=== PATIENT | male | born 1945 | race Two or more races ===

== ENCOUNTER 2017-10-09 07:31 | Day surgery (SDC) | payer MEDICARE ==
[~2017-10-09] VITALS: Ht 185.4 cm; Wt 101.0 kg
[~2017-10-09 07:31] MED LIST: ASPI325 PO; ATOR40TA PO; CIPR500 PO; CLOP75 PO; FINA5 PO; FISH1000 PO; LEVSOD137 PO; METO50ER PO; OXYACE5T PO; Pyridium100 MG PO; Saw Palmetto450 MG PO; [UNRECOGNIZED DRUG - REMARK]
[2017-10-09] MEDS ORDERED: Aspirin EC81 MG PO (07:52)
[2017-10-09] MEDS ORDERED: DRON400T PO (07:54)
[2017-10-09] MEDS ORDERED: ELIQUIS5 MG PO (07:55)
[2017-10-09] MEDS ORDERED: TORSE20 PO (07:56)
[2017-10-09] MEDS ORDERED: SPIR25 PO (07:57)
[2017-10-09] MEDS ORDERED: Amiodarone HCl400 MG PO (09:12)
[2017-10-09] MEDS ORDERED: Omeprazole20 M1 PO (09:13)
[2017-10-10] MEDS ORDERED: SPIR25 (13:08)
[2017-10-10] MEDS ORDERED: LOSA50 (13:09)
[2017-10-10] MEDS ORDERED: BETA.05TCA (13:09)
== END 2017-10-09 23:27 | disposition home or self-care (01) ==
LOC: MHTC 07:31
PROC: 5A2204Z Restoration of Cardiac Rhythm, Single (ICD-10-PCS; principal; 2017-10-09)
DX: I48.0 Paroxysmal atrial fibrillation (principal); I10 Essential (primary) hypertension; I25.10 Atherosclerotic heart disease of native coronary artery without angina pectoris; E78.5 Hyperlipidemia, unspecified; E03.9 Hypothyroidism, unspecified
CPT/HCPCS: 92960; 93005; 93010; 99152; J7030

== ENCOUNTER 2017-10-13 07:21 | Day surgery (SDC) | payer MEDICARE ==
[~2017-10-13] VITALS: Ht 180.3 cm; Wt 106.0 kg
[~2017-10-13 07:21] MED LIST changes: +Amiodarone HCl400 MG PO; +Aspirin EC81 MG PO; +BETA.05TCA; +DRON400T PO; +ELIQUIS5 MG PO; +LOSA50; +Omeprazole20 M1 PO; +SPIR25; +SPIR25 PO; +TORSE20 PO
[2017-10-13] MEDS ORDERED: Amiodarone HCl200 MG (07:56)
[2017-10-13] MEDS ORDERED: ABAT250V (07:57)
[2017-10-13 13:56] LABS: PO2 Arterial 350 mmHg (80-100)
[2017-10-13 13:59] LABS: pH Blood Arterial 7.23 (7.35-7.45)
[2017-10-13 14:09] LABS: BASOPHILS ABSOLUTE AUTO 0.03 K/mm3 (0.00-0.23); BASOPHILS PERCENT AUTO 0 % (0-2); EOSINOPHILS ABSOLUTE AUTO 0.11 K/mm3 (0.00-0.68); EOSINOPHILS PERCENT AUTO 1 % (0-6); Hematocrit 37.9 % (37.0-53.0); Hemoglobin 12.4 g/dL (13.5-17.5); IMMATURE GRAN ABSOLUTE AUTO 0.13 K/mm3 (0.00-0.10); IMMATURE GRAN PERCENT AUTO 1 % (0-1); LYMPHOCYTES ABSOLUTE AUTO 1.87 K/mm3 (0.84-5.20); LYMPHOCYTES PERCENT AUTO 15 % (21-46); MONOCYTES ABSOLUTE AUTO 0.69 K/mm3 (0.16-1.47); MONOCYTES PERCENT AUTO 6 % (4-13); Mean Corpuscular HGB 30.5 pg (26.0-34.0); Mean Corpuscular HGB Conc 32.7 g/dL (31.5-36.5); Mean Corpuscular Volume 93 fL (80-100); Mean Platelet Volume 10.1 fL (9.1-12.4); NEUTROPHILS ABSOLUTE AUTO 9.52 K/mm3 (1.96-9.15); NEUTROPHILS PERCENT AUTO 77 % (41-73); Platelet Count 131 K/mm3 (150-400); RDW Coefficient Variation 13.3 % (11.7-14.2); RDW Standard Deviation 45.2 fL (35.1-46.3); Red Blood Cell Count 4.07 M/mm3 (4.30-5.90); White Blood Cell Count 12.35 K/mm3 (4.00-11.30)
[2017-10-13 14:19] LABS: International Normalized Ratio 1.3; Prothrombin Time Results 13.6 Sec (9.7-11.5)
== END 2017-10-13 16:00 | disposition short-term general hospital (02) ==
LOC: MHTC 07:21
PROVIDERS: Internal Medicine Clinical Cardiac Electrophysiology
PROC: 02583ZZ Destruction of Conduction Mechanism, Percutaneous Approach (ICD-10-PCS; principal; 2017-10-13)
PROC: 02K83ZZ Map Conduction Mechanism, Percutaneous Approach (ICD-10-PCS; principal; 2017-10-13)
PROC: 4A023FZ Measurement of Cardiac Rhythm, Percutaneous Approach (ICD-10-PCS; principal; 2017-10-13)
PROC: 4A0234Z Measurement of Cardiac Electrical Activity, Percutaneous Approach (ICD-10-PCS; principal; 2017-10-13)
DX: I48.2 Chronic atrial fibrillation (principal); I10 Essential (primary) hypertension; E03.9 Hypothyroidism, unspecified; E78.5 Hyperlipidemia, unspecified; Z79.899 Other long term (current) drug therapy; Z79.01 Long term (current) use of anticoagulants; Z95.1 Presence of aortocoronary bypass graft
CPT/HCPCS: 33010; 36430; 36556; 36620; 76930; 76937; 82435; 82803; 84132; 84295; 85025; 85347; 85610; 86850; 86900; 86901; 86923; 92960; 93005; 93010; 93462; 93613; 93656; 93662; C1730; C1731; C1732; C1751; C1759; C1769; C1893; C1894; J1644; J2370; J2405; J2710; J2720; J3010; J7030; J7040; J7060; J7120; P9016; P9059

== ENCOUNTER → 2019-11-29 | Outpatient (CLI) | payer MEDICARE ==
[~2019-11-29] MED LIST changes: +ABAT250V; +Amiodarone HCl200 MG
[2019-11-29 08:05] LABS: Source, Urine Clean Catch
[2019-11-29 10:54] LABS: Bacteria Rare /hpf; Red Blood Cells, Urine Not Seen /hpf (0-2); Squamous Epithelial Cells Rare /hpf (Few); White Blood Cells, Urine Not Seen /hpf (0-5)
[2019-11-29 10:55] LABS: Microalb/Creat Ratio UR, Rand 71.482 mg/g (0.000-30.000); Microalbumin, Random Urine 77.2 mg/L (0.000-20.000)
== END | disposition home or self-care (01) ==
LOC: MHTC 01-31 08:00 → EDSTATUS 02-09 08:00 → LAB 08:00
PROVIDERS: Family Medicine
DX: E78.5 Hyperlipidemia, unspecified (principal); E03.9 Hypothyroidism, unspecified; R31.21 Asymptomatic microscopic hematuria; I10 Essential (primary) hypertension; R07.2 Precordial pain
CPT/HCPCS: 81015; 82043; 82570

== ENCOUNTER 2021-12-27 18:11 | Emergency (ER) | payer OTHER ==
[~2021-12-27] VITALS: Ht 185.4 cm; Wt 102.1 kg
[2021-12-27] MEDS ORDERED: WARF3 PO (19:28)
[2021-12-27] MEDS ORDERED: METO100ER PO ×2 (19:28→20:59)
[2021-12-27 19:30] LABS: BASOPHILS ABSOLUTE AUTO 0.03 K/mm3 (0.00-0.23); BASOPHILS PERCENT AUTO 0 % (0-2); EOSINOPHILS ABSOLUTE AUTO 0.17 K/mm3 (0.00-0.68); EOSINOPHILS PERCENT AUTO 2 % (0-6); Hematocrit 45.5 % (37.0-53.0); Hemoglobin 15.1 g/dL (13.5-17.5); IMMATURE GRAN ABSOLUTE AUTO 0.04 K/mm3 (0.00-0.10); IMMATURE GRAN PERCENT AUTO 1 % (0-1); LYMPHOCYTES PERCENT AUTO 23 % (21-46); MONOCYTES ABSOLUTE AUTO 0.73 K/mm3 (0.16-1.47); MONOCYTES PERCENT AUTO 9 % (4-13); Mean Corpuscular HGB 29.5 pg (26.0-34.0); Mean Corpuscular HGB Conc 33.2 g/dL (31.5-36.5); Mean Corpuscular Volume 89 fL (80-100); NEUTROPHILS ABSOLUTE AUTO 5.26 K/mm3 (1.96-9.15); NEUTROPHILS PERCENT AUTO 65 % (41-73); NRBC ABSOLUTE 0.02 K/mm3 (0.00-0.02); NRBC Auto 0.2 /100 WBC (0.0-0.2); Platelet Count 201 K/mm3 (150-400); RDW Coefficient Variation 13.1 % (11.7-14.2); RDW Standard Deviation 42.5 fL (35.1-46.3); Red Blood Cell Count 5.12 M/mm3 (4.30-5.90); White Blood Cell Count 8.13 K/mm3 (4.00-11.30)
[2021-12-27 19:45] LABS: Alanine Aminotransfer (ALT/SGP 25 U/L (12-78); Albumin, Blood 3.4 g/dL (3.4-5.0); Albumin/Globulin Ratio 0.9 (0.8-1.8); Alk Phos 141 U/L (50-136); Anion Gap 8 mmol/L (6-16); Aspartate Aminotrans (AST/SGOT 18 U/L (12-37); Bilirubin, Total 0.4 mg/dL (0.1-1.0); Blood Urea Nitrogen 13 mg/dL (8-24); Bun/Creatinine Ratio 14.2 (12.0-20.0); CO2, Blood 26 mmol/L (21-32); Calcium, Blood 8.8 mg/dL (8.5-10.1); Chloride, Blood 107 mmol/L (98-108); Creatinine, Blood 0.92 mg/dL (0.60-1.20); Globulin, Blood 3.8 g/dL (2.2-4.0); Glomerular Filtration Rate >60 (60-); Glucose, Blood 162 mg/dL (70-99); Potassium, Blood 3.6 mmol/L (3.5-5.5); Sodium, Blood 141 mmol/L (136-145); Total Protein, Blood 7.2 g/dL (6.4-8.2)
== END 2021-12-27 21:11 | disposition home or self-care (01) ==
LOC: ER 18:11
PROVIDERS: Student in an Organized Health Care Education/Training Program
DX: I48.91 Unspecified atrial fibrillation (principal)
CPT/HCPCS: 80053; 84484; 85025; 93005; 93010; 96374; 99285-25; A9270

== ENCOUNTER → 2022-04-01 | Outpatient (CLI) | payer OTHER ==
[~2022-04-01] MED LIST changes: +METO100ER PO; +WARF3 PO
== END | disposition home or self-care (01) ==
LOC: PLD 12:17 → LAB SHORT 12:17
DX: L57.0 Actinic keratosis (principal); D48.5 Neoplasm of uncertain behavior of skin
CPT/HCPCS: 88305

== ENCOUNTER → 2022-09-30 | Outpatient (CLI) | payer OTHER | LOC: LAB SHORT 11:27 → PLD 11:27 → LAB 11:27 | DX: D48.5 Neoplasm of uncertain behavior of skin (principal) | CPT/HCPCS: 88304 ==

== ENCOUNTER → 2022-10-08 | Outpatient (CLI) | payer OTHER ==
[2022-10-08 10:51] LABS: BASOPHILS ABSOLUTE AUTO 0.03 K/mm3 (0.00-0.23); BASOPHILS PERCENT AUTO 1 % (0-2); EOSINOPHILS ABSOLUTE AUTO 0.17 K/mm3 (0.00-0.68); EOSINOPHILS PERCENT AUTO 3 % (0-6); Hematocrit 43.7 % (37.0-53.0); Hemoglobin 14.6 g/dL (13.5-17.5); IMMATURE GRAN ABSOLUTE AUTO 0.01 K/mm3 (0.00-0.10); IMMATURE GRAN PERCENT AUTO 0 % (0-1); LYMPHOCYTES ABSOLUTE AUTO 0.92 K/mm3 (0.84-5.20); LYMPHOCYTES PERCENT AUTO 17 % (21-46); MONOCYTES ABSOLUTE AUTO 0.74 K/mm3 (0.16-1.47); MONOCYTES PERCENT AUTO 13 % (4-13); Mean Corpuscular HGB 30.3 pg (26.0-34.0); Mean Corpuscular HGB Conc 33.4 g/dL (31.5-36.5); Mean Corpuscular Volume 91 fL (80-100); Mean Platelet Volume 10.7 fL (9.1-12.4); NEUTROPHILS ABSOLUTE AUTO 3.71 K/mm3 (1.96-9.15); NEUTROPHILS PERCENT AUTO 67 % (41-73); Platelet Count 147 K/mm3 (150-400); RDW Coefficient Variation 13.2 % (11.7-14.2); RDW Standard Deviation 43.2 fL (35.1-46.3); Red Blood Cell Count 4.82 M/mm3 (4.30-5.90); White Blood Cell Count 5.58 K/mm3 (4.00-11.30)
== END | disposition home or self-care (01) ==
LOC: LAB SHORT 10:46
PROVIDERS: Physician Assistant Medical
DX: R50.9 Fever, unspecified (principal)
CPT/HCPCS: 85025

== ENCOUNTER 2023-10-11 06:33 | Emergency (ER) | payer OTHER ==
[~2023-10-11] VITALS: Ht 185.4 cm; Wt 99.8 kg
[2023-10-11] MEDS ORDERED: EUTHYROX150 MC1 PO (07:00)
[2023-10-11] MEDS ORDERED: SOTALOL8011 PO (07:00)
[2023-10-11 07:04] LABS: BASOPHILS ABSOLUTE AUTO 0.04 K/mm3 (0.00-0.23); BASOPHILS PERCENT AUTO 0 % (0-2); EOSINOPHILS ABSOLUTE AUTO 0.11 K/mm3 (0.00-0.68); EOSINOPHILS PERCENT AUTO 1 % (0-6); Hematocrit 42.8 % (37.0-53.0); Hemoglobin 14.4 g/dL (13.5-17.5); IMMATURE GRAN ABSOLUTE AUTO 0.06 K/mm3 (0.00-0.10); IMMATURE GRAN PERCENT AUTO 1 % (0-1); LYMPHOCYTES ABSOLUTE AUTO 1.48 K/mm3 (0.84-5.20); LYMPHOCYTES PERCENT AUTO 13 % (21-46); MONOCYTES ABSOLUTE AUTO 0.79 K/mm3 (0.16-1.47); MONOCYTES PERCENT AUTO 7 % (4-13); Mean Corpuscular HGB 30.5 pg (26.0-34.0); Mean Corpuscular HGB Conc 33.6 g/dL (31.5-36.5); Mean Corpuscular Volume 91 fL (80-100); Mean Platelet Volume 10.7 fL (9.1-12.4); NEUTROPHILS ABSOLUTE AUTO 8.89 K/mm3 (1.96-9.15); NEUTROPHILS PERCENT AUTO 78 % (41-73); Platelet Count 207 K/mm3 (150-400); RDW Coefficient Variation 12.9 % (11.7-14.2); RDW Standard Deviation 42.8 fL (35.1-46.3); Red Blood Cell Count 4.72 M/mm3 (4.30-5.90); White Blood Cell Count 11.37 K/mm3 (4.00-11.30)
[2023-10-11 07:16] LABS: Albumin, Blood 3.5 g/dL (3.4-5.0); Albumin/Globulin Ratio 0.9 (0.8-1.8); Bilirubin, Total 0.5 mg/dL (0.1-1.0); Bun/Creatinine Ratio 13.2 (12.0-20.0); Calcium, Blood 8.9 mg/dL (8.5-10.1); Creatinine, Blood 0.98 mg/dL (0.60-1.20); Total Protein, Blood 7.5 g/dL (6.4-8.2)
[2023-10-11 10:32] VITALS: BP 138/78
== END 2023-10-11 11:28 | disposition home or self-care (01) ==
LOC: ER 06:33
PROVIDERS: Emergency Medicine
DX: R07.9 Chest pain, unspecified (principal); M54.9 Dorsalgia, unspecified; Z79.890 Hormone replacement therapy; Z79.899 Other long term (current) drug therapy
CPT/HCPCS: 71046; 80053; 83690; 84484; 85025; 93005; 93010; 96361; 96374; 96375; 96376; 99284-25; A9270; J1170; J2405; J7030

== ENCOUNTER 2024-01-26 00:08 | Emergency (ER) | payer OTHER ==
[~2024-01-26] VITALS: Ht 185.4 cm; Wt 99.8 kg
[2024-01-26 04:45] VITALS: BP 180/98
== END 2024-01-26 05:49 | disposition home or self-care (01) ==
LOC: ER 00:08
DX: S29.012A Strain of muscle and tendon of back wall of thorax, initial encounter (principal); I16.0 Hypertensive urgency; I10 Essential (primary) hypertension; R79.1 Abnormal coagulation profile; X58.XXXA Exposure to other specified factors, initial encounter; Z79.899 Other long term (current) drug therapy